=== PATIENT | female | born 1965 | race Caucasian/White ===

== ENCOUNTER 2018-09-13 22:57 | Emergency (ER) | payer BC ==
[2018-09-13] MEDS ORDERED: Acetaminophen/HYDROcodone 325-5 MG Tab PO ONE (22:58)
[2018-09-13] MEDS ORDERED: Cyclobenzaprine 10 MG Tab PO ONE (22:58)
[2018-09-13] MEDS: Cyclobenzaprine 10 MG Tab PO ONE (23:55)
[2018-09-13] MEDS: Ketorolac 30 MG/ML SDV IM ONE (23:55)
[2018-09-13] MEDS: Acetaminophen/HYDROcodone 325-5 MG Tab PO ONE (23:55)
--- NOTE | 2018-09-13 23:55 | EDM.PDOC ---
ED HPI GENERAL MEDICAL PROBLEM - General Chief Complaint: Back Pain or Injury Stated Complaint: L)Flank pain Time Seen by Provider: 09/13/18 23:41 Source of Information: Reports: Patient History Limitations: Reports: No Limitations - History of Present Illness INITIAL COMMENTS - FREE TEXT/NARRATIVE: patient woke up this am with low back pain on the left greater than the right. She states that throughout the day and she took some motrin at home. The pain got worse throughout the day and it brought her to the ER tonight. She states the pain is a 8/10 and is worse with movement and radiates into the left hip, is a dull aching sharp pain that is constant. denies history of kidney stone or injury to the low back. 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 Lower Flank Pain Score (Numeric/FACES): 5 - Related Data Allergies Allergy/AdvReac Type Severity Reaction Status Date / Time No Known Allergies Allergy Verified 09/13/18 23:01 Home Meds: Home Meds Levothyroxine Sodium [Levo-T] 50 mcg PO DAILY 09/13/18 [History] Past Medical History 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 History: Reports: Other (See Below) Other 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 History: ovary removed d/t tumor Endocrine/Metabolic History: Reports: Hyperthyroidism - Past Surgical History Female Surgical History: Reports: Section - History Comment History Comment: reviewed and agreed with Nursing Social & Family History - Family History Family Medical History: Noncontributory - Tobacco Use Smoking Status *Q: Never Smoker - Caffeine Use Caffeine Use: Reports: None - Recreational Drug Use Recreational Drug Use: No - Living Situation & Occupation Social History Comment: reviwed and agree with nursing documention. ED ROS GENERAL - Review of Systems Review Of Systems: See Below Constitutional: Reports: No Symptoms HEENT: Reports: No Symptoms Respiratory: Reports: No Symptoms Cardiovascular: Reports: No Symptoms Endocrine: Reports: No Symptoms GI/Abdominal: Reports: No Symptoms : Reports: No Symptoms Musculoskeletal: Reports: Back Pain, Muscle Pain Skin: Reports: No Symptoms Neurological: Reports: No Symptoms Psychiatric: Reports: No Symptoms Hematologic/Lymphatic: Reports: No Symptoms Immunologic: Reports: No Symptoms ED EXAM,LOWER BACK PAIN/INJURY - Physical Exam Exam: See Below Exam Limited By: No Limitations General Appearance: Alert, WD/WN, No Apparent Distress Eye Exam: Bilateral Eye: EOMI, PERRL Ears: Normal External Exam, Normal Canal, Hearing Grossly Normal, Normal TMs Nose: Normal Inspection, Normal Mucosa Throat/Mouth: Normal Inspection, Normal Oropharynx Head: Atraumatic, Normocephalic Neck: Normal Inspection, Supple, Non-Tender, Full Range of Motion Respiratory/Chest: No Respiratory Distress, Lungs Clear, Normal Breath Sounds Cardiovascular: Normal Peripheral Pulses, Regular Rate, Rhythm GI/Abdominal: Normal Bowel Sounds, Soft, Non-Tender Back Exam: Normal Inspection, Full Range of Motion, Paraspinal Tenderness ( right lumbar paraspinal muscluature. ), Other Extremities: Normal Inspection, Normal Range of Motion Neurological: Alert, Normal Mood/Affect, Normal Dorsiflexion, CN II-XII Intact, No Motor/Sensory Deficits, Oriented x 3 Psychiatric: Normal Affect Skin Exam: Warm, Dry, Intact, Normal Color Course - Vital Signs Last Recorded V/S: Last Vital Signs Temp 97.8 F 09/13/18 22:58 Pulse 81 09/13/18 22:58 Resp 20 09/13/18 22:58 BP 152/90 H 09/13/18 22:58 Pulse Ox 99 09/13/18 22:58 - Orders/Labs/Meds Orders: Active Orders 24 hr Category Date Time Status Acetaminophen/HYDROcodone [Winfield 325-5 MG] Med 09/13/18 23:48 Once 2 tab PO ONETIME ONE Cyclobenzaprine [Flexeril] Med 09/13/18 23:47 Once 10 mg PO ONETIME ONE Ketorolac [Toradol] Med 09/13/18 23:48 Once 30 mg IM ONETIME ONE Medication Orders Hydrocodone Bitart/Acetaminophen ([place]ield 325-5 Mg) 2 tab PO ONETIME ONE Stop: 09/13/18 23:49 Cyclobenzaprine HCl (Flexeril) 10 mg PO ONETIME ONE Stop: 09/13/18 23:48 Ketorolac Tromethamine (Toradol) 30 mg IM ONETIME ONE Stop: 09/13/18 23:49 Labs: Laboratory Tests 09/13/18 Range/Units 23:13 Urine Color Yellow (YELLOW) Urine Appearance Clear (CLEAR) Urine pH 5.5 (4.5-8.0) Ur Specific [place] 1.010 (1.003-1.020) Urine Protein Negative (NEGATIVE) mg/dL Urine Glucose (UA) Negative (NEGATIVE) mg/dL Urine Ketones Negative (NEGATIVE) mg/dL Urine Occult Blood Trace-intact H (NEGATIVE) Urine Nitrite Negative (NEGATIVE) Urine Bilirubin Negative (NEGATIVE) Urine Urobilinogen 0.2 (0.2-1.0) EU/dL Ur Leukocyte Esterase Negative (NEGATIVE) Urine RBC 0-5 (0-5) /HPF Urine WBC 0-5 (0-5) /HPF Ur Squamous Epith Cells Rare (NOT SEEN) /HPF Urine Bacteria Occasional H (NOT SEEN) /HPF Meds: Medications Generic Name Dose Route Start Last Admin Trade Name Freq PRN Reason Stop Dose Admin Hydrocodone Bitart/Acetaminophen 2 tab 09/13/18 23:48 W[place] 325-5 Mg PO 09/13/18 23:49 ONETIME ONE Cyclobenzaprine HCl 10 mg 09/13/18 23:47 Flexeril PO 09/13/18 23:48 ONETIME ONE Ketorolac Tromethamine 30 mg 09/13/18 23:48 Toradol IM 09/13/18 23:49 ONETIME ONE - Re-Assessments/Exams Free Text/Narrative Re-Assessment/Exam: 09/14/18 00:01 patient was treated with Toradol Flexeril and Winfield in ER. Urine was found to have bacteria trace and trace blood. 09/14/18 00:08 patient was told to follow up with Gayathri CAMPBELL- on Saturday or saturday if stll painful. She was given Winfield and flexeril take home pack and told to return if worse. Patient was improving at D/c. Departure - Departure Time of Disposition: 00:13 Disposition: Home, Self-Care 01 Condition: Good Clinical Impression: Lumbar strain Qualifiers: Encounter type: initial encounter Qualified Code(s): S39.012A - Strain of muscle, fascia and tendon of lower back, initial encounter - Discharge Information *PRESCRIPTION DRUG MONITORING PROGRAM REVIEWED*: Not Applicable *COPY OF PRESCRIPTION DRUG MONITORING REPORT IN PATIENT KURT: Not Applicable Instructions: Low Back Sprain, Back Injury Prevention, [id number], Pain Medicine Instructions, [id number], Low Back Sprain Rehab-SportsMed Referrals: Santy Emerson PA-C [Primary Care Provider] - Additional Instructions: Use heat to the sore area...gentle static stretches. Use Winfield one every [address] not drive or mix with alcohol Flexeril for muscle relaxation. may make you sleepy. Work note for tomorrow if needed. Diclofenac at home for pain do not mix with motrin ibuprofen or aleve. with Robaxin for muscle relaxation. Follow up with Tom or Gayathri CAMPBELL in the clinic in 5-7 days if still painful. Return if worse. - My Orders Last 24 Hours: My Active Orders 09/13/18 23:47 Cyclobenzaprine [Flexeril] 10 mg PO ONETIME ONE 09/13/18 23:48 Acetaminophen/HYDROcodone [Winfield 325-5 MG] 2 tab PO ONETIME ONE Ketorolac [Toradol] 30 mg IM ONETIME ONE - Assessment/Plan Last 24 Hours: My Active Orders 09/13/18 23:47 Cyclobenzaprine [Flexeril] 10 mg PO ONETIME ONE 09/13/18 23:48 Acetaminophen/HYDROcodone [Winfield 325-5 MG] 2 tab PO ONETIME ONE Ketorolac [Toradol] 30 mg IM ONETIME ONE
[2018-09-14] MEDS: Take Home: Acetaminophen/HYDROcodone 325-5 MG, 2 Tab Pack PO ONE (00:32)
[2018-09-14] MEDS: Take Home: Cyclobenzaprine 10 MG Tab, 4 Tab Pack PO ONE (00:32)
[2018-09-14] MEDS ORDERED: LEVOTHYROXINE SODIUM 50 MCG PO SCH (08:00)
== END 2018-09-14 00:35 | disposition home or self-care (01) ==
LOC: CC.ED 22:57
DX: S39.012A Strain of muscle, fascia and tendon of lower back, initial encounter (principal); E05.90 Thyrotoxicosis, unspecified without thyrotoxic crisis or storm; Z79.899 Other long term (current) drug therapy; X58.XXXA Exposure to other specified factors, initial encounter
CPT/HCPCS: 81001; 96372; 99283; A9270-GY; J1885

== ENCOUNTER → 2020-09-23 | Day surgery (SDC) | payer BC ==
[2020-09-23] MEDS: Lactated Ringers 1,000 ML IV ONE (11:17)
--- NOTE | 2020-09-26 08:04 | OR ---
DATE OF OPERATION: 09/23/2020 PREOPERATIVE DIAGNOSIS: POSITIVE COLOGUARD. POSTOPERATIVE DIAGNOSIS: POSITIVE COLOGUARD. SURGEON: Daniel Coppola MD PROCEDURE: DIAGNOSTIC COLONOSCOPY WITH FORCEPS POLYP REMOVAL X4. ANESTHESIA: MAC. COMPLICATIONS: None. SPECIMEN: Four sessile polyps, three less than 0.5 cm, one approximately 5 to 6 mm. FINDINGS: 1. Full-length diagnostic colonoscopy. 2. Four sessile polyps, see above. RECOMMENDATIONS: Followup colonoscopy in 3 years. INDICATIONS: Ms. Toribio was in for routine physical. Had a positive Cologuard. Gayathri Emerson sent her for diagnostic endoscopy. DESCRIPTION OF PROCEDURE: The patient was prepped and draped, placed in the left lateral decubitus position. A lubricated Olympus colonoscope was inserted and easily advanced to the cecum. Direct visualization of the ileocecal valve and appendiceal orifice was accomplished. The bowel prep was adequate. Upon withdrawal of the scope, the cecum and most of the ascending colon were benign. Just prior to the hepatic flexure, the patient had a small sessile polyp about 3 mm along the haustral fold, removed in its entirety with 2 forceps biopsies. There was a second sessile polyp, a little more elongated, maybe about 6 mm at the hepatic flexure, removed with 3 forceps biopsies. A third sessile polyp just on the transverse colon side of the hepatic flexure also removed with a forceps. The rest of the transverse colon appeared benign. Just past the splenic flexure, the patient had a fourth sessile polyp removed with a forceps in its entirety without complication. The descending and sigmoid colons appeared to be benign without any polyps, masses, ulceration, or bleeding sites. No vascular abnormalities or signs of colitis. The rectal vault was benign. Retroflexion of the scope in the rectum showed no anal lesions. Air was suctioned and the scope removed without complication. AMIRA/APRILL /[id number]
== END ==
LOC: CC.SDS 10:58
PROVIDERS: ATTEND Family Medicine
DX: D12.2 Benign neoplasm of ascending colon (principal); D12.3 Benign neoplasm of transverse colon; E03.9 Hypothyroidism, unspecified; E66.9 Obesity, unspecified; Z79.890 Hormone replacement therapy; Z86.16 Personal history of COVID-19; Z87.891 Personal history of nicotine dependence; Z68.33 Body mass index [BMI] 33.0-33.9, adult
CPT/HCPCS: 45380; J7120

== ENCOUNTER 2022-02-12 00:56 | Emergency (ER) | payer BC ==
[2022-02-12] MEDS: Cyclobenzaprine 10 MG Tab PO ONE (01:36)
[2022-02-12] MEDS: Ketorolac 30 MG/ML SDV IM ONE (01:36)
[2022-02-12] MEDS: Take Home: Nitrofurantoin Monohydrate/Macrocrystalline 100 MG, 2 Cap Pack PO ONE (02:19)
[2022-02-12] MEDS: Take Home: Cyclobenzaprine 10 MG Tab, 4 Tab Pack PO ONE (02:23)
== END 2022-02-12 02:20 | disposition home or self-care (01) ==
LOC: CC.ED 00:56
DX: N39.0 Urinary tract infection, site not specified (principal); M62.830 Muscle spasm of back; E05.90 Thyrotoxicosis, unspecified without thyrotoxic crisis or storm; Z87.891 Personal history of nicotine dependence; Z79.899 Other long term (current) drug therapy
CPT/HCPCS: 81001; 87086; 96372; 99283; 99284; A9270-GY; J1885

== ENCOUNTER 2024-03-05 19:19 | Emergency (ER) | payer BC ==
[2024-03-05] MEDS: Take Home: Amoxicillin/Clavulanate K 875-125 MG Tab, 2 Tab Pack PO ONE (19:41)
[2024-03-05 21:09] VITALS: BP 144/78; PULSE 89
== END 2024-03-05 19:40 | disposition home or self-care (01) ==
LOC: CC.ED 19:19
DX: J02.0 Streptococcal pharyngitis (principal); E03.9 Hypothyroidism, unspecified; Z79.899 Other long term (current) drug therapy
CPT/HCPCS: 99282; A9270-GY

== ENCOUNTER → 2025-01-08 | Day surgery (SDC) | payer BC ==
[~2025-01-08] MED LIST: Ketamine 200 MG/20 ML MDV ONE; Midazolam 1 MG/ML 2 ML SDV ONE; Ondansetron 4 MG/2 ML SDV ONE; Propofol 200 MG/20 ML SDV ONE; fentaNYL 50 MCG/ML SDV ONE
[2025-01-08] MEDS: Lactated Ringers 1,000 ML IV SCH (09:11)
== END ==
LOC: CC.SDS 08:55
PROVIDERS: ATTEND Family Medicine
DX: Z12.11 Encounter for screening for malignant neoplasm of colon (principal); D12.3 Benign neoplasm of transverse colon; I10 Essential (primary) hypertension; E03.9 Hypothyroidism, unspecified; Z86.16 Personal history of COVID-19; Z79.890 Hormone replacement therapy; Z79.899 Other long term (current) drug therapy; Z87.891 Personal history of nicotine dependence; Z86.0101 Personal history of adenomatous and serrated colon polyps
CPT/HCPCS: 00811; J2250; J2405; J2704; J3010; J3490; J7120